=== PATIENT | female | born 1960 | race Caucasian/White ===

== ENCOUNTER 2020-08-16 07:18 | Outpatient (CLI) | payer MEDICARE ==
--- NOTE | 2020-08-18 08:35 | NM ---
RADIONUCLIDE WHITE BLOOD CELLS SCAN WITH WHOLE-BODY PLANAR IMAGING AND SPECT-CT OF THE PELVIS: HISTORY: Chronic ulcer or skin or ascites with fat clear. Concern for infection in the region of the vagina and hysterectomy site. RADIOPHARMACEUTICAL: 441 uCi indium-111 labeled WBCs injected intravenously with imaging performed af ter a 24-hour delay FINDINGS: There is physiologic uptake in the liver, spleen and bone marrow. No abnormal areas of tracer localization are seen on the planar or SPECT CT images. IMPRESSION: Normal exam.
== END 2020-08-16 07:19 | disposition home or self-care (01) ==
LOC: NM 07:18
PROVIDERS: ATTEND Nurse Practitioner Family
DX: L98.492 Non-pressure chronic ulcer of skin of other sites with fat layer exposed (principal)
CPT/HCPCS: 78806; A4641; A9547

== ENCOUNTER 2020-10-09 09:54 | Outpatient (CLI) | payer MEDICARE ==
[~2020-10-09 09:54] MED LIST: Magnevist 469MG/ML 20 ML VIAL ONE
--- NOTE | 2020-10-09 12:46 | MRI ---
MRI Abdomen W WO Con History: Crohn's disease. Ileostomy status. Comparison: None. Findings: No significant pleural effusion. No significant pericardial effusion. Background bone marrow signal is without infiltrative process. No hydronephrosis. No abnormal enhancing renal mass. No adrenal mass. No intrahepatic or extrahepatic biliary dilatation. No abnormal enhancing hepatic mass. No apparent g allbladder is appreciated. Minimal reservoir effect of the extrahepatic biliary system with the common bile duct measuring 7 mm. No hydroureteronephrosis. No abnormal enhancing urothelial mass. No abnormal enhancing pancreatic mas s. Prior colectomy. Left lower quadrant ileostomy without complication. No bowel containing parastomal h ernia. No adenopathy. No fistula, inflammatory mass, or sinus tract. There stricture. No focal area of abnormal wall enhancement to suggest active inflammation. No saccul ations. No evidence of penetrating disease. No segmental mural hyperenhancement or wall thickening. No intramural edema or stricture. No ulcerati ons. No mesenteric adenopathy. No evidence for femoral head avascular necrosis sacroiliitis or mesenteric venous thrombosis. Impression: 1. Prior colectomy with normal appearance of left lower quadrant ileostomy. No evidence for active Cr ohn's disease. 2. No evidence of complications due to chronic inflammatory bowel disease. No ulceration, sinus tract fistula or deep mesenteric involvement. No evidence for mesenteric inflammatory mass, abscess or perforation. 3. No evidence for other complications associated with inflammatory bowel disease.
== END 2020-10-09 09:55 | disposition home or self-care (01) ==
LOC: MRI 09:54
PROVIDERS: ATTEND Internal Medicine
DX: K50.90 Crohn's disease, unspecified, without complications (principal); R10.2 Pelvic and perineal pain; R10.84 Generalized abdominal pain; R13.10 Dysphagia, unspecified; Z93.2 Ileostomy status; Z90.49 Acquired absence of other specified parts of digestive tract
CPT/HCPCS: 74183; 82565; J1610; A9579

== ENCOUNTER 2020-10-17 08:40 | Outpatient (CLI) | payer MEDICARE ==
--- NOTE | 2020-10-17 11:37 | MRI ---
EXAM: MRI of the pelvis/prostate without and with contrast HISTORY: Perianal pain. History of Crohn's disease and history of ileostomy. Patient is having draina ge from her vagina and extending down the buttocks for years. Patient has had a colectomy including removal of the rectum. COMPARISON: MRI abdomen 10/09/2020; tagged white blood scan 08/17/2020 TECHNIQUE: Multiplanar multisequence MR images were obtained of the pelvis without and with IV contra st. Evaluation of this exam was performed with a [employer] workstation. FINDINGS: The colon has been removed. There is an ileostomy in the left lower quadrant of the abdomen. No bowel loops are seen in the pelvis and there is a large amount of fat interposed between the bowel loops and the urinary bladder and vagina. The uterus has been removed. Neither ovary is visualized. There i s a small amount of enhancement along the pelvic floor in the operative bed from prior colectomy. There is a small amount of high T2 signal along the left aspect of the gluteal crease. This does not track back to the sacrum, coccyx, or intrapelvic structures. No marrow signal abnormality is present. IMPRESSION: Inflammatory change along the left aspect of the gluteal crease without definite sinus tract to the b one or intrapelvic structures. These inflammatory changes may be sequelae from a remote fistula or sinus tract. This exam was reviewed with Dr. Trejo who agrees the findings and impression.
[2020-10-17] MEDS ORDERED: Magnevist 469MG/ML 20 ML VIAL ONE (13:14)
== END 2020-10-17 08:41 | disposition home or self-care (01) ==
LOC: MRI 08:40 → BICMRI 08:41
PROVIDERS: ATTEND Internal Medicine
DX: K50.90 Crohn's disease, unspecified, without complications (principal); R10.2 Pelvic and perineal pain; R10.84 Generalized abdominal pain; R13.10 Dysphagia, unspecified; Z93.2 Ileostomy status
CPT/HCPCS: 72197; A9579

== ENCOUNTER 2021-03-21 09:27 | Emergency (ER) | payer MEDICARE, BC ==
[2021-03-21 11:03] LABS: #Basophils 0.1 thou/uL (0.0-0.2); #Eosinphils 0.1 thou/uL (0.0-0.7); #Lymphocytes 2.2 thou/uL (1.20-3.40); #Monocytes 0.6 thou/uL (0.11-0.59); #Neutrophils 3.4 thou/uL (1.40-6.50); %Basophils 0.9 % (0.0-1.0); %Lymphocytes 35.1 % (21.0-51.0); %Monocytes 8.8 % (0.0-10.0); %Neutrophils 53.2 % (42.0-75.0); Hemoglobin 14.2 g/dL (12.0-16.0); Mean Corpuscular HGB CONC 34.4 g/dL (32.0-36.0); Mean Corpuscular Hemoglobin 31.8 pg (27.0-31.0); Mean Corpuscular Volume 92.4 fL (78.0-98.0); Mean Platelet Volume 7.7 fL (7.4-10.4); Platelet Count 227 thou/uL (130-400); RBC Distribution Width 12.9 % (11.5-14.5); Red Blood Cell (RBC) Count 4.45 mill/uL (4.20-5.40); White Blood Cell (WBC) Count 6.4 thou/uL (4.8-10.8)
[2021-03-21 11:25] LABS: ALT (SGPT) 50 U/L (8-55); AST (SGOT) 40 U/L (5-34); Albumin 4.6 g/dL (3.4-4.8); Alkaline Phosphatase 118 U/L (40-110); Anion Gap 18 mmol/L (10-20); BUN (Urea Nitrogen) 18 mg/dL (9.8-20.1); Bilirubin, Total 0.5 mg/dL (0.2-1.2); Calc. Creatinine Clearance 0 mL/min (70-130); Calcium 10.2 mg/dL (7.8-10.44); Carbon Dioxide 20 mmol/L (23-31); Chloride 107 mmol/L (98-107); Globulin 4.1 g/dL (2.4-3.5); Glucose 104 mg/dL (80-115); Potassium 3.9 mmol/L (3.5-5.1); Protein, Total 8.7 g/dL (5.8-8.1); Sodium 141 mmol/L (136-145)
[2021-03-21 11:51] LABS: SARS-CoV-2 NAA Rapid Test Not Detected (NotDetected)
[2021-03-21] MEDS ORDERED: Ketorolac Tromethamine 30 MG/ML VIAL ONE (12:57)
== END 2021-03-21 13:07 | disposition home or self-care (01) ==
LOC: ERS 09:27
DX: J18.9 Pneumonia, unspecified organism (principal); Z20.822 Contact with and (suspected) exposure to COVID-19; K58.9 Irritable bowel syndrome, unspecified; M06.9 Rheumatoid arthritis, unspecified; Z79.899 Other long term (current) drug therapy
CPT/HCPCS: 0240U; 71045; 80053; 84484; 85025; 85379; 93005; 96374; J1885

== ENCOUNTER → 2021-09-12 | Day surgery (SDC) | payer BC, MEDICARE ==
[~2021-09-12] MED LIST changes: +Acetaminophen 500 MG TAB PO PRN; -Magnevist 469MG/ML 20 ML VIAL ONE; +SODIUM CHLORIDE 0.9% IV SCH; +USTEKINUMAB IV SCH; +Ustekinumab 390 MG in Sodium Chloride 0.9% 250 ML 172 ML IV SCH; +diphenhydrAMINE 25 MG CAP PO PRN
== END ==
LOC: ONC/OP 08:27
PROVIDERS: ATTEND Internal Medicine
DX: K50.90 Crohn's disease, unspecified, without complications (principal); Z88.5 Allergy status to narcotic agent; Z88.8 Allergy status to other drugs, medicaments and biological substances; Z91.018 Allergy to other foods
CPT/HCPCS: J3358; J7050

== ENCOUNTER 2021-09-26 08:44 | Day surgery (SDC) | payer BC, MEDICARE ==
[~2021-09-26 08:44] MED LIST changes: -SODIUM CHLORIDE 0.9% IV SCH; -USTEKINUMAB IV SCH; -Ustekinumab 390 MG in Sodium Chloride 0.9% 250 ML 172 ML IV SCH; +Ustekinumab 390 MG in Sodium Chloride 0.9% 250 ML 172 ML IVPB SCH
[2021-09-26] MEDS ORDERED: Sodium Chloride 0.9% 20 ML ONE (08:52)
[2021-09-26 12:05] VITALS: BP 124/59; TEMP 98.5
== END 2021-09-26 15:29 | disposition home or self-care (01) ==
LOC: ONC/OP 08:44
PROVIDERS: ATTEND Internal Medicine
DX: K50.90 Crohn's disease, unspecified, without complications (principal); Z88.5 Allergy status to narcotic agent; Z88.8 Allergy status to other drugs, medicaments and biological substances; Z91.018 Allergy to other foods
CPT/HCPCS: 96413; J3358; J7050

== ENCOUNTER 2021-11-25 17:48 | Inpatient (IN) | payer BC, MEDICARE ==
[2021-11-25 18:38] LABS: #Basophils 0.1 thou/uL (0.0-0.2); #Lymphocytes 0.9 thou/uL (1.20-3.40); #Monocytes 0.4 thou/uL (0.11-0.59); #Neutrophils 11.9 thou/uL (1.40-6.50); %Basophils 0.5 % (0.0-1.0); %Eosinophils 0.2 % (0.0-10.0); %Lymphocytes 6.4 % (21.0-51.0); %Monocytes 2.7 % (0.0-10.0); %Neutrophils 90.1 % (42.0-75.0); Hemoglobin 16.9 g/dL (12.0-16.0); Mean Corpuscular Hemoglobin 32.6 pg (27.0-31.0); Mean Corpuscular Volume 93.1 fL (78.0-98.0); Mean Platelet Volume 7.6 fL (7.4-10.4); Platelet Count 249 thou/uL (130-400); Red Blood Cell (RBC) Count 5.18 mill/uL (4.20-5.40); White Blood Cell (WBC) Count 13.2 thou/uL (4.8-10.8)
[2021-11-25 18:52] LABS: PTT 28.5 sec (22.9-36.1); Prothrombin Time 13.3 sec (12.0-14.7)
[2021-11-25 18:59] LABS: Actual Bicarbonate (HCO3v) 18 mEq/L (22-28); Analyzer IN Cardio ER; Base Excess -5.2 mEq/L (-2.0 to +3.0); Calcium, Ionized (venous) 1.02 mmol/L (1.16-1.32); Chloride (VBG) 97 mmol/L (98-106); Hemoglobin (Hb) 17.7 g/dL (11.7-16.0); Potassium (VBG) 6.75 mmol/L (3.70-5.30); Sodium 131.3 mmol/L (133-146)
[2021-11-25 19:12] LABS: ALT (SGPT) 44 U/L (8-55); AST (SGOT) 50 U/L (5-34); Albumin 5.1 g/dL (3.4-4.8); Alkaline Phosphatase 120 U/L (40-110); Anion Gap 23 mmol/L (10-20); BUN (Urea Nitrogen) 35 mg/dL (9.8-20.1); Bilirubin, Total 0.8 mg/dL (0.2-1.2); Calc. Creatinine Clearance 0 mL/min (70-130); Calcium 10.8 mg/dL (7.8-10.44); Carbon Dioxide 17 mmol/L (23-31); Chloride 96 mmol/L (98-107); Globulin 5.5 g/dL (2.4-3.5); Glucose 151 mg/dL (80-115); Lipase 43 U/L (8-78); Magnesium 1.5 mg/dL (1.6-2.6); Potassium 5.8 mmol/L (3.5-5.1); Protein, Total 10.6 g/dL (5.8-8.1); Sodium 130 mmol/L (136-145)
[2021-11-25] MEDS ORDERED: Magnesium 2 GM/50 ML BAG (IN WATER) ONE (19:31)
[2021-11-25 19:51] LABS: Bacteria/HPF 3+ HPF (None Seen); Bilirubin Negative (Negative); Blood, Urine Negative (Negative); Clarity Turbid (Clear); Glucose, Urine (Dipstick) Normal (Negative); Ketone, Urine Trace mg/dL (Negative); Leukocyte 500 Leu/uL (Negative); Mucous/LPF Rare LPF (<2+); Nitrite Negative (Negative); Protein, Urine (Dipstick) 30 mg/dL (Neg-Trace); RBC/HPF 0-3 HPF (0-3); Renal Epithelial 0-3 HPF (None Seen); Specific Gravity, Urine 1.028 (1.002-1.036); Urobilinogen Normal mg/dL (Less than 2); WBC/HPF 21-50 HPF (0-3)
[2021-11-25 21:35] LABS: Lactic Acid 2.2 mmol/L (0.5-2.2)
[2021-11-25] MEDS ORDERED: cefTRIAXone\\ROCEPHIN 1 GM VIAL ONE (21:48)
[2021-11-25] MEDS ORDERED: Acetaminophen 500 MG TAB ONE (22:17)
[2021-11-25 22:50] LABS: Troponin I 0.017 ng/mL (< 0.028)
[2021-11-25 23:46] VITALS: BMI 25.7
[2021-11-26] MEDS: Sodium Chloride 0.9% 1,000 ML IV SCH ×3 (00:18→22:34)
[2021-11-26 01:52] LABS: Troponin I Less than 0.010 ng/mL (< 0.028)
[2021-11-26] MEDS ORDERED: Acetaminophen 325 MG TAB PO PRN (04:30)
[2021-11-26] MEDS ORDERED: Ondansetron PF 4 MG/2 ML Vial IVP PRN (04:30)
[2021-11-26] MEDS ORDERED: Pharmacy to Dose VANC AND CEFEPIME IVPB PRN (04:36)
[2021-11-26 04:57] LABS: #Eosinphils 0.1 thou/uL (0.0-0.7); #Lymphocytes 1.3 thou/uL (1.20-3.40); #Monocytes 0.5 thou/uL (0.11-0.59); #Neutrophils 5.7 thou/uL (1.40-6.50); %Basophils 0.3 % (0.0-1.0); %Lymphocytes 17.1 % (21.0-51.0); %Monocytes 6.1 % (0.0-10.0); %Neutrophils 75.5 % (42.0-75.0); Hemoglobin 14.1 g/dL (12.0-16.0); Mean Corpuscular HGB CONC 34.4 g/dL (32.0-36.0); Mean Corpuscular Hemoglobin 32.2 pg (27.0-31.0); Mean Corpuscular Volume 93.5 fL (78.0-98.0); Mean Platelet Volume 7.7 fL (7.4-10.4); Platelet Count 180 thou/uL (130-400); RBC Distribution Width 11.8 % (11.5-14.5); Red Blood Cell (RBC) Count 4.39 mill/uL (4.20-5.40); White Blood Cell (WBC) Count 7.5 thou/uL (4.8-10.8)
[2021-11-26] MEDS ORDERED: VANCOMYCIN 1.25 GM/250 ML BAG 1.25 GM in Premix Bag 1 BAG IVPB SCH (05:00)
[2021-11-26 05:22] LABS: Anion Gap 14 mmol/L (10-20); BUN (Urea Nitrogen) 26 mg/dL (9.8-20.1); Calc. Creatinine Clearance 40 mL/min (70-130); Carbon Dioxide 21 mmol/L (23-31); Chloride 103 mmol/L (98-107); Glucose 115 mg/dL (80-115); Magnesium 2.5 mg/dL (1.6-2.6); Potassium 3.3 mmol/L (3.5-5.1); Sodium 135 mmol/L (136-145)
[2021-11-26] MEDS ORDERED: Cefepime 1 GM in Sodium Chloride 0.9% 100 ML IVPB SCH (06:00)
[2021-11-26 07:39] LABS: SARS-CoV-2 NAA Rapid Test Not Detected (NotDetected)
[2021-11-26] MEDS ORDERED: Potassium Chloride 20 MEQ TAB PO SCH (09:00)
[2021-11-26] MEDS: Enoxaparin Sodium 30 MG/0.3 ML SYRINGE SC SCH (09:37)
[2021-11-26] MEDS ORDERED: metroNIDAZOLE 500 MG in Premix Bag 1 BAG IVPB SCH (14:00)
[2021-11-26] MEDS ORDERED: metroNIDAZOLE 500 MG TAB PO SCH (14:00)
[2021-11-26] MEDS ORDERED: Azithromycin 500 MG in Sodium Chloride 0.9% 250 ML 250 ML IVPB SCH (18:00)
[2021-11-26] MEDS ORDERED: Melatonin 3 MG TAB PO PRN (21:49)
[2021-11-27] MEDS ORDERED: Vancomycin 1 GM in Premix Bag 1 BAG IVPB SCH (05:00)
[2021-11-27 05:23] LABS: #Basophils 0.1 thou/uL (0.0-0.2); #Eosinphils 0.2 thou/uL (0.0-0.7); #Lymphocytes 2.1 thou/uL (1.20-3.40); #Monocytes 0.5 thou/uL (0.11-0.59); #Neutrophils 3.6 thou/uL (1.40-6.50); %Basophils 0.8 % (0.0-1.0); %Lymphocytes 33.1 % (21.0-51.0); %Monocytes 7.9 % (0.0-10.0); %Neutrophils 55.3 % (42.0-75.0); Hemoglobin 15.2 g/dL (12.0-16.0); Mean Corpuscular HGB CONC 33.3 g/dL (32.0-36.0); Mean Corpuscular Hemoglobin 31.3 pg (27.0-31.0); Mean Corpuscular Volume 94.2 fL (78.0-98.0); Mean Platelet Volume 7.4 fL (7.4-10.4); Platelet Count 207 thou/uL (130-400); RBC Distribution Width 11.9 % (11.5-14.5); Red Blood Cell (RBC) Count 4.84 mill/uL (4.20-5.40); White Blood Cell (WBC) Count 6.5 thou/uL (4.8-10.8)
[2021-11-27 05:40] LABS: Vancomycin, Random 7.4 ug/mL (See Comment)
[2021-11-27 06:15] LABS: Anion Gap 14 mmol/L (10-20); BUN (Urea Nitrogen) 15 mg/dL (9.8-20.1); Calc. Creatinine Clearance 50 mL/min (70-130); Calcium 9.6 mg/dL (7.8-10.44); Carbon Dioxide 24 mmol/L (23-31); Chloride 104 mmol/L (98-107); Glucose 111 mg/dL (80-115); Magnesium 1.9 mg/dL (1.6-2.6); Potassium 3.4 mmol/L (3.5-5.1); Sodium 139 mmol/L (136-145)
[2021-11-27] MEDS: Enoxaparin Sodium 30 MG/0.3 ML SYRINGE SC SCH (09:54)
[2021-11-27] MEDS ORDERED: Potassium Chloride 20 MEQ TAB PO SCH (12:00)
[2021-11-27 12:01] VITALS: BP 132/60; TEMP 98.8
== END 2021-11-27 14:00 | disposition home or self-care (01) | DRG 372 ==
LOC: ERS 17:48 → 2NO 21:41
PROVIDERS: ADMIT Internal Medicine; ATTEND Internal Medicine
DX: A04.5 Campylobacter enteritis (principal); N17.9 Acute kidney failure, unspecified; E87.1 Hypo-osmolality and hyponatremia; K50.90 Crohn's disease, unspecified, without complications; E87.2 Acidosis; Z20.822 Contact with and (suspected) exposure to COVID-19; E87.5 Hyperkalemia; E83.42 Hypomagnesemia; T36.3X5A Adverse effect of macrolides, initial encounter; K52.9 Noninfective gastroenteritis and colitis, unspecified; E86.0 Dehydration; F41.9 Anxiety disorder, unspecified; F32.A Depression, unspecified; M06.9 Rheumatoid arthritis, unspecified; J45.909 Unspecified asthma, uncomplicated; Z90.49 Acquired absence of other specified parts of digestive tract; Z88.1 Allergy status to other antibiotic agents; Z88.6 Allergy status to analgesic agent; Z88.8 Allergy status to other drugs, medicaments and biological substances; Z91.018 Allergy to other foods; Z93.2 Ileostomy status; Z98.1 Arthrodesis status; Z79.899 Other long term (current) drug therapy; Z90.710 Acquired absence of both cervix and uterus
CPT/HCPCS: 0240U; 36415; 74176; 80048; 80053; 80202; 81003; 81015; 82805; 83605; 83690; 83735; 83880; 84484; 85025; 85610; 85730; 87040; 87045; 87046; 87070; 87077; 87086; 87205; 87324; 87427; 87449; 93005; 94760; 96365; 96367; J0456; J0692; J0696; J1650; J1956; J3370; J3475; J3490; J7050